=== PATIENT | female | born 1980 | race Caucasian/White ===

== ENCOUNTER 2018-05-23 06:50 | Emergency (ER) | payer BC ==
[~2018-05-23] VITALS: Ht 91.4 cm; Wt 104.3 kg
--- OUTSIDE RECORDS SUMMARY | 2018-05-23 06:52 | XMS REPORT ---
Author Author Faby Etienne [facility] eClinicalWorks Address Unknown Phone Unavailable Care Team Providers Care Telex Operator Name Role Phone Faby Etienne Unavailable Encounters Encounter Location Date Test results [facility] Aug 18, 2013 Problems Problem Type Condition ICD-9 Code Onset Dates Condition Status Problem Obesity 278.00 Active Problem HTN (hypertension) 401.9 Active Medications Medication Code System Code Instructions Start Date End Date Status Dosage Vitamin D (Ergocalciferol) [facility] [address]-89 84016 UNIT Orally once per week Aug 18, 2013 Feb 02, 2014 Active 1 capsule Social History Social History Element Qualifiers Date Reported Ethnicity . Status , Is dutch your primary language? Yes Aug 15, 2013 children . None Aug 15, 2013 Tobacco Use: . Are you a: former smoker quit 1 year 4 month, How many packs per day? 1-2, How many years have you smoked? 10-20 12 years Aug 15, 2013 Marital Status: single. Aug 15, 2013 Do you drink alcohol? . Status: Yes, Type: Liquor, How often? Rarely, How much? Socially Aug 15, 2013 Occupation: employed. NOV/ orders Aug 15, 2013 Vital Signs Date/Time: Aug 15, 2013 Weight 233 lbs Height 63 inches Temperature 98.0 F Cardiac Monitoring Heart Rate 86 Beats per Minute Blood Pressure Diastolic 96 mm Hg Blood Pressure Systolic 144 mm Hg Summary Purpose eClinicalWorks Submission
--- OUTSIDE RECORDS SUMMARY | 2018-05-23 06:52 | XMS REPORT ---
Author Author [facility] Address Unknown Phone Unavailable Care Team Providers Care Senior Education Specialist Name Role Phone Unavailable Unavailable Problems This patient has no known problems. Allergies, Adverse Reactions, Alerts This patient has no known allergies or adverse reactions. Medications This patient has no known medications. Encounters Start Date/Time End Date/Time Encounter Type Admission Type Attending [facility] Facility Care Department Encounter ID 2018-03-29 00:00:00 2018-03-29 00:00:00 Outpatient [facility] [id number] 2018-03-14 00:00:00 2018-03-14 00:00:00 Outpatient [facility] [id number] 2017-12-17 00:00:00 2017-12-17 00:00:00 Outpatient [facility] [id number] 2017-12-14 00:00:00 2017-12-14 00:00:00 Outpatient [facility] [id number] 2017-11-29 00:00:00 2017-11-29 00:00:00 Outpatient [facility] [id number] 2017-11-11 00:00:00 2017-11-11 00:00:00 Outpatient [facility] [id number] 2017-11-08 00:00:00 2017-11-08 00:00:00 Outpatient [facility] [id number] 2017-11-02 08:18:12 2017-11-02 08:18:12 Outpatient [facility] [id number] 2017-11-01 11:28:03 2017-11-01 11:28:03 Outpatient [facility] [id number] 2017-10-22 07:30:22 2017-10-22 07:30:22 Outpatient [facility] [id number] 2017-10-18 00:00:00 2017-10-18 00:00:00 Outpatient [facility] [id number] 2017-10-11 14:38:18 2017-10-11 14:38:18 Outpatient [facility] [id number] 2017-10-11 13:22:17 2017-10-11 13:22:17 Outpatient [facility] [id number] 2017-10-11 00:00:00 2017-10-11 00:00:00 Outpatient [facility] [id number] 2017-10-04 00:00:00 2017-10-04 00:00:00 Outpatient [facility] [id number] 2017-09-20 00:00:00 2017-09-20 00:00:00 Outpatient [facility] [id number] 2017-09-15 09:53:25 2017-09-15 09:53:25 Outpatient [facility] [id number] 2017-09-15 08:43:57 2017-09-15 08:43:57 Outpatient [facility] [id number] 2017-09-08 15:31:28 2017-09-08 15:31:28 Outpatient [facility] [id number] 2017-09-08 13:25:51 2017-09-08 13:25:51 Outpatient [facility] [id number] 2017-07-16 10:30:07 2017-07-16 10:30:07 Outpatient [facility] [id number] 2017-06-11 00:00:00 2017-06-11 00:00:00 Outpatient [facility] [id number] 2017-03-15 10:07:52 2017-03-15 10:07:52 Outpatient [facility] [id number] 2016-12-11 08:51:07 2016-12-11 08:51:07 Outpatient [facility] [id number]
--- OUTSIDE RECORDS SUMMARY | 2018-05-23 06:52 | XMS REPORT | Continuity of Care Document ---
Author Author [facility] Interface Address Unknown Phone Unavailable Problems Problem Status Onset Date Classification Date Reported Comments Source Obesity Active Problem 09/07/2013 [facility] HTN Active Problem 09/07/2013 [facility] Encounter for Hemoccult screening Active Diagnosis 09/07/2013 [facility] Newly diagnosed diabetes Active Diagnosis 09/07/2013 [facility] Vitamin d deficiency Active Diagnosis 09/07/2013 [facility] Elevated LFTs Active Diagnosis 09/07/2013 [facility] Medications Medication Details Route Status Patient Instructions Ordering Provider Order Date Source MetFORMIN HCl ER 1 tablet Orally Active 500 mg Orally twice a day (bid) [facility] 08/29/2013 [facility] Vitamin D (Ergocalciferol) 1 capsule Orally Active 04355 UNIT Orally once per week [facility] 08/18/2013 [facility] Lisinopril 1 tablet Orally Active 10 mg Orally Once a day [facility] 08/15/2013 [facility] Eye Drops 1 drop into affected eye as needed Ophthalmic Active 0.05 % Ophthalmic OTC for dry eyes [facility] Allergies, Adverse Reactions, Alerts Substance Category Reaction Severity Reaction type Status Date Reported Comments Source Immunizations Immunization Date Given Site Status Last Updated Comments Source Results Order Name Results Value Reference Range Date Interpretation Comments Source Vital Signs Vital Sign Value Date Comments Source Weight 231 08/29/2013 [facility] Height 63 08/29/2013 [facility] Heart Rate 80 08/29/2013 [facility] Diastolic (mm Hg) 90 08/29/2013 [facility] Systolic (mm Hg) 140 08/29/2013 [facility] Weight 233 08/15/2013 [facility] Height 63 08/15/2013 [facility] Temperature Oral (F) 98.0 F 08/15/2013 [facility] Heart Rate 86 08/15/2013 [facility] Diastolic (mm Hg) 96 08/15/2013 [facility] Systolic (mm Hg) 144 08/15/2013 [facility] Encounters Location Location Details Encounter Type Encounter Number Reason For Visit Attending Provider ADM Date DC Date Status Source [facility] [employer] [id number] 08/15/2013 08/15/2013 [facility] [employer] [id number] 08/15/2013 08/15/2013 [facility] Test results [id number] 08/18/2013 08/18/2013 [facility] Test results [id number] 08/18/2013 08/18/2013 [facility] Test results [id number] 08/18/2013 08/18/2013 [facility] Follow-Up [id number] 08/29/2013 08/29/2013 [facility] Follow-Up [id number] 08/29/2013 08/29/2013 [facility] Procedures Procedure Code Date Perfomer Comments Source
--- OUTSIDE RECORDS SUMMARY | 2018-05-23 06:52 | XMS REPORT ---
Author Author Faby Etienne [facility] eClinicalWorks Address Unknown Phone Unavailable Care Team Providers Care Back Feeder Plywood Layup Line Name Role Phone Faby Etienne Unavailable Encounters Encounter Location Date Test results [facility] Aug 18, 2013 [employer] [facility] Aug 15, 2013 Follow-Up [facility] August 29, 2013 Problems Problem Type Condition ICD-9 Code Onset Dates Condition Status Problem Obesity 278.00 Active Assessment Encounter for routine gynecological examination V72.31 Active Problem HTN (hypertension) 401.9 Active Assessment Obesity 278.00 Active Assessment Encounter for Hemoccult screening V76.51 Active Assessment HTN (hypertension) 401.9 Active Medications Medication Code System Code Instructions Start Date End Date Status Dosage Eye Drops [facility] [address]-07 0.05 % Ophthalmic OTC for dry eyes Active 1 drop into affected eye as needed Lisinopril [facility] [address]-33 10 mg Orally Once a day Aug 15, 2013 Active 1 tablet Social History Social History Element Qualifiers Date Reported Ethnicity . Status , Is botswanan your primary language? Yes Aug 15, 2013 [...] Occupation: employed. NOV/ orders Aug 15, 2013 Family history Qualifier Description Comment Date Reported Maternal Grandmother alive glaucoma in her 90s Aug 15, 2013 Paternal Grandmother Comment not available Aug 15, 2013 Father alive diabetes mellitus Aug 15, 2013 Maternal Grandfather Comment not available Aug 15, 2013 Mother alive hypertension, cancer appendix Aug 15, 2013 Paternal Grandfather Comment not available Aug 15, 2013 Vital Signs Date/Time: Aug 15, 2013 Weight 233 lbs Height 63 inches Temperature 98.0 F Cardiac Monitoring Heart Rate 86 Beats per Minute Blood Pressure Diastolic 96 mm Hg Blood Pressure Systolic 144 mm Hg Results Lipid Panel Hemoglobin A1c Urinalysis, Routine TSH CBC With Differential/Platelet Pap IG, rfx HPV all pth Vitamin D, 25-Hydroxy Comp. Metabolic Panel (14) Summary Purpose eClinicalWorks Submission
--- OUTSIDE RECORDS SUMMARY | 2018-05-23 06:52 | XMS REPORT ---
Author Author Faby Etienne [facility] eClinicalWorks Address Unknown Phone Unavailable Care Team Providers Care Corporate Securities Research Analyst Name Role Phone Jaimie Faby CP Unavailable Encounters Encounter Location Date Test results [facility] Aug 18, 2013 [employer]GAL ADMINISTR[employer] [facility] Aug 15, 2013 Follow-Up [facility] August 29, 2013 Problems Problem Type Condition ICD-9 Code Onset Dates Condition Status Problem Obesity 278.00 Active Assessment Newly diagnosed diabetes 250.00 Active Problem HTN (hypertension) 401.9 Active Assessment Obesity 278.00 Active Assessment HTN (hypertension) 401.9 Active Assessment Vitamin d deficiency 268.9 Active Assessment Elevated LFTs 790.6 Active Medications Medication Code System Code Instructions Start Date End Date Status Dosage Vitamin D (Ergocalciferol) [facility] [address]-71 59278 UNIT Orally once per week Aug 18, 2013 Feb 02, 2014 Active 1 capsule Lisinopril [facility] [address]-85 10 mg Orally Once a day Aug 15, 2013 Active 1 tablet Eye Drops [facility] [address]-88 0.05 % Ophthalmic OTC for dry eyes Active 1 drop into affected eye as needed MetFORMIN HCl ER [facility] [address]-64 500 mg Orally twice a day (bid) August 29, 2013 Active 1 tablet Social History Social History Element Qualifiers Date Reported Ethnicity . Status , Is slovenian your primary language? Yes August 29, 2013 children . None August 29, 2013 Tobacco Use: . Are you a: former smoker quit 1 year 4 month, How many packs per day? 1-2, How many years have you smoked? 10-20 12 years August 29, 2013 Marital Status: single. August 29, 2013 Do you drink alcohol? . Status: Yes, Type: Liquor, How often? Rarely, How much? Socially August 29, 2013 Occupation: employed. NOV/ orders August 29, 2013 Family history Qualifier Description Comment Date Reported Maternal Grandmother alive glaucoma in her 90s August 29, 2013 Paternal Grandmother Comment not available August 29, 2013 Father alive diabetes mellitus August 29, 2013 Maternal Grandfather Comment not available August 29, 2013 Mother alive hypertension, cancer appendix August 29, 2013 Paternal Grandfather Comment not available August 29, 2013 Vital Signs Date/Time: August 29, 2013 Weight 231 lbs Height 63 inches Cardiac Monitoring Heart Rate 80 Beats per Minute Blood Pressure Diastolic 90 mm Hg Blood Pressure Systolic 140 mm Hg Summary Purpose eClinicalWorks Submission
[2018-05-23] MEDS ORDERED: ONDANSETRON HCL 4 MG ORAL DISINTEGRATING TAB PO ONE (07:45)
[2018-05-23] MEDS ORDERED: DONNATAL/LIDOCAINE/MAALOX 30 ML SUSP PO ONE (07:45)
--- NOTE | 2018-05-23 08:38 | Diagnostic Imaging Report ---
EXAM: CT Abdomen and Pelvis WITHOUT contrast INDICATION: Pain COMPARISON: None. TECHNIQUE: Abdomen and Pelvis was scanned utilizing a multidetector helical scanner without the use of IV contrast. Coronal and sagittal reformations were obtained. IV CONTRAST: None COMPLICATIONS: None RADIATION DOSE: Total DLP: 825 mGy*cm Estimated effective dose: (DLP x 0.015 x size factor) mSv CTDIvol has been reviewed. It is below the limits set by the Radiation Protocol Committee (RPC). Appropriate CT dose reduction techniques were utilized. FINDINGS: Abdomen: Lung Bases: No acute findings. Solid Organs: Decreased attenuation the liver suggesting steatosis. The gallbladder is distended with gallstone inferiorly image 37. Questionable faint pericholecystic stranding. Nonenhanced images of the adrenals, kidneys, spleen, and pancreas unremarkable. Upper GI Tract: Decompressed stomach limits evaluation. No small bowel obstructive changes. Vascularity: Mild aortic vascular calcifications with no aneurysm. Lymph Nodes: No suspicious adenopathy. Other: None. Pelvis: Bladder: Unremarkable. Other: Uterus absent. Colon: Distal decompression limits evaluation. No acute colonic findings. Appendix not inflamed. Bones: No acute findings. IMPRESSION: 1. Cholelithiasis, distended gallbladder, and questionable faint pericholecystic stranding. Correlation for cholecystitis. Ultrasound could be obtained for better evaluation. 2. Mild hepatic steatosis. Signed by: Dr. Philip Page MD on 05/23/2018 8:34 AM
[2018-05-23] MEDS ORDERED: MORPHINE SULFATE INJ 4 MG/ML INJ IV ONE (09:00)
[2018-05-23] MEDS ORDERED: KETOROLAC TROMETHAMINE 30 MG/ML VIAL IV NR (09:00)
[2018-05-23 11:26] VITALS: BP 160/90
== END 2018-05-23 10:31 | disposition home or self-care (01) ==
LOC: FSED 06:50
DX: R10.13 Epigastric pain (principal); R11.2 Nausea with vomiting, unspecified; K80.70 Calculus of gallbladder and bile duct without cholecystitis without obstruction
CPT/HCPCS: 74176; 76705; 80053; 85025; 96374; 96375; 99284; J2270; Q0162